=== PATIENT | female | born 2000 | race Caucasian/White ===

== ENCOUNTER 2019-07-18 16:46 | Observation (INO) ==
[2019-07-18 17:50] LABS: Amphetamine Screen,Urine Negative ng/mL (Cutoff=1000); Barbiturate Screen,Urine Negative ng/mL (Cutoff=200); Benzodiazepines Screen,Urine Negative ng/mL (Cutoff=200); Cannabinoid Screen,Urine Negative ng/mL (Cutoff = 50); Cocaine Screen,Urine Negative ng/mL (Cutoff= 300); Opiate Screen,Urine Negative ng/mL (Cutoff=300); Phencyclidine Screen,Urine Negative ng/mL (Cutoff=25)
[2019-07-18] MEDS ORDERED: Epidural Premix (fent/bupiv) 110 ML EP SCH (18:15)
[2019-07-18 20:48] LABS: Bilirubin,Urine Small (Negative); Blood,Urine Small (Negative); Clarity,Urine Cloudy (Clear); Color,Urine Dark Yellow (Yellow); Glucose,Urine (UA) Normal (Normal); Ketones,Urine Negative (Negative); Leukocyte Esterase,Urine Small (Negative); Nitrite,Urine Negative (Negative); Protein,Urine Negative (Neg-Trace); Specific Gravity,Urine 1.021 (1.010-1.025); Urobilinogen,Urine Normal (Normal)
[2019-07-18 20:49] LABS: Bacteria,Urine Moderate per hpf (None-Few); Squamous Epithelial Cell,Urine Many per lpf (None-Few)
[2019-07-18 21:11] LABS: Hyaline Casts,Urine None Seen per lpf (None-Few); Mucus,Urine Few (Few); RBC,Urine 0-3 per hpf (0-3)
[2019-07-18] MEDS ORDERED: hydrOXYzine pamoate 25 MG CAPSULE PO PRN (21:43)
== END 2019-07-18 22:10 | disposition home or self-care (01) ==
LOC: 1NENULAB
PROVIDERS: ADMIT Registered Nurse; ATTEND Registered Nurse

== ENCOUNTER 2019-07-19 03:25 | Inpatient (IN) ==
[~2019-07-19 03:25] MED LIST: *HR* Nalbuphine 10 MG/ML AMPUL IVP PRN; Famotidine 20 MG/2 ML VIAL IVP PRN; Lidocaine 1% 20 ML MDV INFILT PRN; Metoclopramide 10 MG/2 ML VIAL IVP PRN; Naloxone 0.4 MG/ML INJ IVP PRN; Ondansetron 4 MG/2 ML VIAL IVP PRN
[2019-07-19] MEDS ORDERED: Ringers Solution, Lactated 1,000 ML IVC SCH (03:30)
[2019-07-19] MEDS ORDERED: Epidural Premix (fent/bupiv) 110 ML EP ONE (03:33)
[2019-07-19 03:48] LABS: Basophils % 0.2 %; Eosinophils # 0.1 K/mcL (0.0-0.6); Eosinophils % 0.6 %; Hematocrit 33.3 % (35.3-44.9); Hemoglobin 11.5 g/dL (11.5-15.4); Immature Granulocytes % 0.3 % (0-4); Lymphocytes # 1.9 K/mcL (0.6-4.6); Lymphocytes % 16.4 %; Mean Corpuscular HGB Conc 34.5 g/dL (31.6-35.5); Mean Platelet Volume 11.4 fL (9.4-12.4); Monocytes # 0.6 K/mcL (0.0-1.3); Monocytes % 5.2 %; Neutrophils # 8.7 K/mcL (1.6-8.9); Platelet Count 259 K/mcL (140-400); Red Blood Count 4.11 M/mcL (3.82-4.97); Red Cell Distribution Width 12.8 % (11.5-14.5); Segmented Neutrophils % 77.3 %; White Blood Count 11.3 K/mcL (4.3-11.1)
[2019-07-19] MEDS ORDERED: Epidural Premix (fent/bupiv) 110 ML EP SCH (04:00)
[2019-07-19 04:02] LABS: Amphetamine Screen,Urine Negative ng/mL (Cutoff=1000); Barbiturate Screen,Urine Negative ng/mL (Cutoff=200); Benzodiazepines Screen,Urine Negative ng/mL (Cutoff=200); Cannabinoid Screen,Urine Negative ng/mL (Cutoff = 50); Cocaine Screen,Urine Negative ng/mL (Cutoff= 300); Opiate Screen,Urine Negative ng/mL (Cutoff=300); Phencyclidine Screen,Urine Negative ng/mL (Cutoff=25)
[2019-07-19] MEDS ORDERED: Oxytocin 20 units/ LR 1000 mL 20 UNIT/1,000 ML BAG IVC ONE (04:26)
[2019-07-19] MEDS ORDERED: Benzocaine/Menthol 56 GM AEROSOL SPRAY TP PRN (08:47)
[2019-07-19] MEDS ORDERED: Oxytocin 20 units/ LR 1000 mL 20 UNIT/1,000 ML BAG IVC SCH (08:47)
[2019-07-19] MEDS: Acetaminophen 325 MG TABLET PO PRN ×2 (09:23→15:53)
[2019-07-19] MEDS: Ibuprofen 600 MG TABLET PO PRN ×3 (09:24→23:14)
[2019-07-19] MEDS: Prenatal Vit/FA 1 EACH TABLET PO SCH (11:56)
[2019-07-20 07:53] VITALS: BP 122/71
[2019-07-20] MEDS: Prenatal Vit/FA 1 EACH TABLET PO SCH (08:40)
[2019-07-20] MEDS: Acetaminophen 325 MG TABLET PO PRN (11:38)
== END 2019-07-20 14:45 | disposition home or self-care (01) | DRG 560 ==
LOC: 1NENULAB → 1NENUOBS 08:11
PROVIDERS: ADMIT Registered Nurse; ATTEND Registered Nurse

== ENCOUNTER 2020-01-20 11:54 | Observation (INO) ==
[2020-01-20] MEDS ORDERED: Ondansetron 4 MG/2 ML VIAL IVP PRN (15:12)
[2020-01-20] MEDS ORDERED: *HR* HYDROcodone/Acet 5/325 mg TABLET PO PRN (15:12)
[2020-01-20] MEDS: Clindamycin 900 MG/50 ML 900 MG/50 ML IV.SOLN IVPB SCH (19:05)
[2020-01-21] MEDS: Clindamycin 900 MG/50 ML 900 MG/50 ML IV.SOLN IVPB SCH ×2 (00:34→10:26)
[2020-01-21] MEDS ORDERED: Ondansetron 4 MG/2 ML VIAL ONE (07:27)
[2020-01-21] MEDS ORDERED: Lidocaine -MPF 2% 2 ML VIAL ONE (07:27)
[2020-01-21] MEDS ORDERED: *HR* FentaNYL (PF) 100 MCG/2 ML VIAL ONE ×2 (07:27→08:25)
[2020-01-21] MEDS ORDERED: Dexamethasone 4 MG/ML VIAL ONE (07:27)
[2020-01-21] MEDS ORDERED: *HR* Propofol 200 MG/20 ML VIAL IVP ONE (07:28)
[2020-01-21] MEDS ORDERED: *HR* Midazolam HCl 2 MG/2 ML VIAL ONE (07:28)
[2020-01-21] MEDS ORDERED: Ondansetron 4 MG/2 ML VIAL IVP ONE ×2 (07:42→10:12)
[2020-01-21] MEDS ORDERED: *HR* OxyCODONE Immed Rel 5 MG TABLET PO PRN (07:42)
[2020-01-21] MEDS ORDERED: Acetaminophen IV 1,000 MG/100 ML INFUS..BTL ONE (07:47)
[2020-01-21] MEDS: *HR* HYDROmorphone PF 0.5 MG/0.5 ML SYRINGE IVP PRN ×4 (08:32→09:00)
[2020-01-21] MEDS ORDERED: Ondansetron 4 MG/2 ML VIAL IVP PRN (10:12)
[2020-01-21] MEDS ORDERED: *HR* HYDROcodone/Acet 5/325 mg TABLET PO PRN (10:12)
[2020-01-21 12:43] VITALS: BP 130/76
[2020-01-21] MEDS ORDERED: Clindamycin 900 MG/50 ML 900 MG/50 ML IV.SOLN IVPB SCH (16:00)
== END 2020-01-21 14:19 | disposition left against medical advice (07) ==
LOC: CDU → 3ANU 15:12
PROVIDERS: ADMIT Surgery; ATTEND Surgery

== ENCOUNTER → 2021-05-20 01:50 | Observation (INO) ==
[2021-05-20 00:46] LABS: Bilirubin,Urine Negative (Negative); Blood,Urine Negative (Negative); Clarity,Urine Clear (Clear); Color,Urine Light-Yellow (Yellow); Glucose,Urine (UA) Normal (Normal); Ketones,Urine Negative (Negative); Leukocyte Esterase,Urine Negative (Negative); Nitrite,Urine Negative (Negative); PH,Urine 6.5 pH Units (5.0-8.0); Protein,Urine Negative (Neg-Trace); Specific Gravity,Urine 1.024 (1.010-1.025); Urobilinogen,Urine Normal (Normal)
[2021-05-20 00:50] LABS: Basophils % 0.2 %; Eosinophils # 0.4 K/mcL (0.0-0.6); Eosinophils % 3.9 %; Hematocrit 31.2 % (35.3-44.9); Hemoglobin 10.4 g/dL (11.5-15.4); Immature Granulocytes % 0.4 % (0-4); Lymphocytes % 29.5 %; Mean Corpuscular HGB Conc 33.3 g/dL (31.6-35.5); Mean Corpuscular Hemoglobin 28.6 pg (28.0-33.3); Mean Corpuscular Volume 85.7 fL (83.0-100.0); Mean Platelet Volume 10.6 fL (9.4-12.4); Monocytes # 0.5 K/mcL (0.0-1.3); Monocytes % 4.4 %; Neutrophils # 6.3 K/mcL (1.6-8.9); Nucleated Red Blood Cells 0.2 /100 WBC (0); Platelet Count 252 K/mcL (140-400); Red Blood Count 3.64 M/mcL (3.82-4.97); Red Cell Distribution Width 12.9 % (11.5-14.5); Segmented Neutrophils % 61.6 %; White Blood Count 10.2 K/mcL (4.3-11.1)
[2021-05-20 00:57] LABS: Protein/Creatinine Ratio,Urine 0.16 mg/mg (0.00-0.20)
[2021-05-20 01:08] LABS: Alanine Aminotransferase 13 Units/L (7-52); Aspartate Amino Transferase 16 Units/L (13-39); BUN/Creatinine Ratio 29 (6-26); Blood Urea Nitrogen 12 mg/dL (6-20); Lactate Dehydrogenase 92 Units/L (140-271); eGFR For African Americans > 60 (> 60); eGFR For Non-African Americans > 60 (> 60)
[~2021-05-20 01:50] MED LIST changes: -*HR* Nalbuphine 10 MG/ML AMPUL IVP PRN; +FLU Vac QV 21-22 (6Month+)/PF 0.5 ML SYRINGE IM ONE; -Famotidine 20 MG/2 ML VIAL IVP PRN; -Lidocaine 1% 20 ML MDV INFILT PRN; -Metoclopramide 10 MG/2 ML VIAL IVP PRN; -Naloxone 0.4 MG/ML INJ IVP PRN; -Ondansetron 4 MG/2 ML VIAL IVP PRN; +Prochlorperazine 10 MG/2 ML VIAL IM ONE
== END | disposition home or self-care (01) ==
LOC: 1NENULAB
PROVIDERS: ADMIT Registered Nurse; ATTEND Registered Nurse

== ENCOUNTER → 2021-08-13 20:20 | Observation (INO) ==
[2021-08-13 16:53] LABS: Basophils % 0.3 %; Eosinophils # 0.1 K/mcL (0.0-0.6); Eosinophils % 1.4 %; Hemoglobin 10.5 g/dL (11.5-15.4); Immature Granulocytes % 0.5 % (0-4); Lymphocytes # 2.3 K/mcL (0.6-4.6); Lymphocytes % 23.7 %; Mean Corpuscular HGB Conc 32.8 g/dL (31.6-35.5); Mean Corpuscular Hemoglobin 27.3 pg (28.0-33.3); Mean Corpuscular Volume 83.1 fL (83.0-100.0); Mean Platelet Volume 11.2 fL (9.4-12.4); Monocytes # 0.4 K/mcL (0.0-1.3); Monocytes % 4.5 %; Neutrophils # 6.8 K/mcL (1.6-8.9); Platelet Count 283 K/mcL (140-400); Red Blood Count 3.85 M/mcL (3.82-4.97); Red Cell Distribution Width 12.3 % (11.5-14.5); Segmented Neutrophils % 69.6 %; White Blood Count 9.8 K/mcL (4.3-11.1)
[2021-08-13 17:02] LABS: Protein/Creatinine Ratio,Urine 0.27 mg/mg (0.00-0.20)
[2021-08-13 17:12] LABS: Alanine Aminotransferase 41 Units/L (7-52); Aspartate Amino Transferase 35 Units/L (13-39); BUN/Creatinine Ratio 23 (6-26); Blood Urea Nitrogen 10 mg/dL (6-20); Lactate Dehydrogenase 132 Units/L (140-271); Uric Acid 3.4 mg/dL (2.3-7.6); eGFR For African Americans > 60 (> 60); eGFR For Non-African Americans > 60 (> 60)
[2021-08-13 19:40] LABS: Influenza A PCR Negative (Negative); Influenza B PCR Negative (Negative); Resp. Syncytial Virus PCR Negative (Negative)
[2021-08-13 19:41] LABS: SARS-CoV-2 by PCR (In House) Negative (Negative)
[~2021-08-13 20:20] MED LIST changes: +Acetaminophen/Butalbital/CaffeineTABLET PO PRN; -FLU Vac QV 21-22 (6Month+)/PF 0.5 ML SYRINGE IM ONE; -Prochlorperazine 10 MG/2 ML VIAL IM ONE; +Ringers Solution, Lactated 1,000 ML IVC ONE; +Ringers Solution, Lactated 1,000 ML ONE; +hydrOXYzine pamoate 25 MG CAPSULE PO ONE
== END | disposition home or self-care (01) ==
LOC: 1NENULAB
PROVIDERS: ADMIT Registered Nurse; ATTEND Registered Nurse

== ENCOUNTER 2021-08-16 01:36 | Observation (INO) ==
[2021-08-16 02:51] LABS: Influenza A PCR Negative (Negative); Influenza B PCR Negative (Negative); Resp. Syncytial Virus PCR Negative (Negative)
[2021-08-16 03:06] LABS: SARS-CoV-2 by PCR (In House) Negative (Negative)
[2021-08-16 03:09] LABS: Bacteria,Urine Few per hpf (None-Few); Bilirubin,Urine Negative (Negative); Blood,Urine Negative (Negative); Clarity,Urine Clear (Clear); Color,Urine Yellow (Yellow); Glucose,Urine (UA) Normal (Normal); Ketones,Urine Negative (Negative); Leukocyte Esterase,Urine Negative (Negative); Mucus,Urine Few per lpf (None-Few); Nitrite,Urine Negative (Negative); Protein,Urine 50 mg/dL (Neg-Trace); Specific Gravity,Urine > 1.030 (1.010-1.025); Squamous Epithelial Cell,Urine Moderate per hpf (None-Few); WBC,Urine 0-3 per hpf (0-3)
== END 2021-08-16 03:25 | disposition home or self-care (01) ==
LOC: 1NENULAB
PROVIDERS: ADMIT Advanced Practice Midwife; ATTEND Advanced Practice Midwife

== ENCOUNTER 2021-08-24 18:11 | Observation (INO) ==
[2021-08-24 20:18] LABS: Bilirubin,Urine Negative (Negative); Blood,Urine Negative (Negative); Clarity,Urine Turbid (Clear); Color,Urine Yellow (Yellow); Glucose,Urine (UA) Normal (Normal); Ketones,Urine Negative (Negative); Leukocyte Esterase,Urine Negative (Negative); Mucus,Urine Few per lpf (None-Few); Nitrite,Urine Negative (Negative); Protein,Urine Trace mg/dL (Neg-Trace); RBC,Urine 0-3 per hpf (0-3); Specific Gravity,Urine 1.024 (1.010-1.025); Squamous Epithelial Cell,Urine Moderate per hpf (None-Few); Urobilinogen,Urine Normal (Normal); WBC,Urine 0-3 per hpf (0-3)
[2021-08-24 20:20] LABS: Basophils % 0.3 %; Eosinophils # 0.2 K/mcL (0.0-0.6); Eosinophils % 1.3 %; Hematocrit 31.7 % (35.3-44.9); Hemoglobin 10.3 g/dL (11.5-15.4); Immature Granulocytes % 0.4 % (0-4); Lymphocytes # 2.6 K/mcL (0.6-4.6); Lymphocytes % 22.5 %; Mean Corpuscular HGB Conc 32.5 g/dL (31.6-35.5); Mean Corpuscular Hemoglobin 27.2 pg (28.0-33.3); Mean Corpuscular Volume 83.6 fL (83.0-100.0); Mean Platelet Volume 11.6 fL (9.4-12.4); Monocytes # 0.5 K/mcL (0.0-1.3); Monocytes % 4.4 %; Neutrophils # 8.1 K/mcL (1.6-8.9); Platelet Count 256 K/mcL (140-400); Red Blood Count 3.79 M/mcL (3.82-4.97); Red Cell Distribution Width 12.4 % (11.5-14.5); Segmented Neutrophils % 71.1 %; White Blood Count 11.4 K/mcL (4.3-11.1)
[2021-08-24 20:35] LABS: Alanine Aminotransferase 34 Units/L (7-52); Aspartate Amino Transferase 28 Units/L (13-39); BUN/Creatinine Ratio 21 (6-26); Blood Urea Nitrogen 9 mg/dL (6-20); Lactate Dehydrogenase 119 Units/L (140-271); Uric Acid 4.7 mg/dL (2.3-7.6); eGFR For African Americans > 60 (> 60); eGFR For Non-African Americans > 60 (> 60)
[2021-08-24 20:39] LABS: Protein/Creatinine Ratio,Urine 0.2 mg/mg (0.00-0.20)
== END 2021-08-24 21:20 | disposition home or self-care (01) ==
LOC: 1NENULAB
PROVIDERS: ADMIT Registered Nurse; ATTEND Registered Nurse

== ENCOUNTER 2021-09-07 08:00 | Inpatient (IN) ==
[2021-09-07] MEDS ORDERED: EPHEDrine 50 MG/ML VIAL IVP PRN (08:12)
[2021-09-07] MEDS ORDERED: Ringers Solution, Lactated 1,000 ML IVC SCH (08:15)
[2021-09-07] MEDS ORDERED: Ondansetron 4 MG/2 ML VIAL IVP PRN (08:15)
[2021-09-07] MEDS ORDERED: Famotidine 20 MG/2 ML VIAL IVP PRN (08:15)
[2021-09-07] MEDS ORDERED: Epidural Premix (fent/bupiv) 110 ML EP SCH (08:15)
[2021-09-07] MEDS ORDERED: Azithromycin 500 MG in 0.9 % Sodium Chloride 250 ML IVPB PRN (08:15)
[2021-09-07] MEDS ORDERED: Lidocaine 1% 20 ML MDV INFILT PRN (08:15)
[2021-09-07] MEDS ORDERED: Metoclopramide 10 MG/2 ML VIAL IVP PRN (08:15)
[2021-09-07 09:07] LABS: Basophils % 0.2 %; Eosinophils # 0.1 K/mcL (0.0-0.6); Eosinophils % 1.2 %; Hematocrit 29.9 % (35.3-44.9); Immature Granulocytes % 0.6 % (0-4); Lymphocytes # 2.6 K/mcL (0.6-4.6); Lymphocytes % 25.8 %; Mean Corpuscular HGB Conc 33.4 g/dL (31.6-35.5); Mean Corpuscular Hemoglobin 27.7 pg (28.0-33.3); Mean Corpuscular Volume 82.8 fL (83.0-100.0); Mean Platelet Volume 11.9 fL (9.4-12.4); Monocytes # 0.5 K/mcL (0.0-1.3); Monocytes % 4.8 %; Neutrophils # 6.7 K/mcL (1.6-8.9); Nucleated Red Blood Cells 0.2 /100 WBC (0); Platelet Count 282 K/mcL (140-400); Red Blood Count 3.61 M/mcL (3.82-4.97); Red Cell Distribution Width 12.8 % (11.5-14.5); Segmented Neutrophils % 67.4 %; White Blood Count 9.9 K/mcL (4.3-11.1)
[2021-09-07 09:37] LABS: Influenza A PCR Negative (Negative); Influenza B PCR Negative (Negative); Resp. Syncytial Virus PCR Negative (Negative)
[2021-09-07] MEDS ORDERED: miSOPROStoL 25 MCG TABLET PO PRN (09:37)
[2021-09-07 09:50] LABS: SARS-CoV-2 by PCR (In House) Negative (Negative)
[2021-09-07 10:50] LABS: Amphetamine Screen,Urine Negative ng/mL (Cutoff=1000); Barbiturate Screen,Urine Negative ng/mL (Cutoff=200); Benzodiazepines Screen,Urine Negative ng/mL (Cutoff=200); Cannabinoid Screen,Urine Negative ng/mL (Cutoff = 50); Cocaine Screen,Urine Negative ng/mL (Cutoff= 300); Opiate Screen,Urine Negative ng/mL (Cutoff=300); Phencyclidine Screen,Urine Negative ng/mL (Cutoff=25)
[2021-09-07] MEDS ORDERED: Ondansetron 4 MG/2 ML VIAL ONE (12:12)
[2021-09-07] MEDS ORDERED: Oxytocin 20 units/ LR 1000 mL 20 UNIT/1,000 ML BAG IVC SCH (14:15)
[2021-09-07] MEDS: *HR* Nalbuphine 10 MG/ML AMPUL IV PRN ×2 (16:10→20:10)
[2021-09-08] MEDS ORDERED: Benzocaine/Menthol 56 GM AEROSOL SPRAY TP PRN (00:37)
[2021-09-08] MEDS ORDERED: Oxytocin 20 units/ LR 1000 mL 20 UNIT/1,000 ML BAG IVC SCH (00:37)
[2021-09-08] MEDS ORDERED: Lanolin 7 G OINT...G. TP PRN (00:37)
[2021-09-08] MEDS ORDERED: Ondansetron ODT 4 MG TAB.RAPDIS SL PRN (00:37)
[2021-09-08] MEDS: Ibuprofen 600 MG TABLET PO SCH ×4 (01:14→22:40)
[2021-09-08] MEDS: Acetaminophen 325 MG TABLET PO SCH ×2 (03:03→18:55)
[2021-09-08] MEDS: Prenatal Vit/FA 1 EACH TABLET PO SCH (11:06)
[2021-09-09] MEDS ORDERED: hydrOXYzine pamoate 25 MG CAPSULE PO PRN (03:08)
[2021-09-09 07:29] VITALS: BP 127/85; PULSE 84; TEMP 98.2; O2SAT 95
[2021-09-09] MEDS: Prenatal Vit/FA 1 EACH TABLET PO SCH (09:21)
[2021-09-09] MEDS: Acetaminophen 325 MG TABLET PO SCH (09:21)
[2021-09-09] MEDS: Ibuprofen 600 MG TABLET PO SCH (09:21)
== END 2021-09-09 12:29 | disposition home or self-care (01) | DRG 560 ==
LOC: 1NENULAB 08:03 → 1NENUOBS 09-08 01:09
PROVIDERS: ADMIT Advanced Practice Midwife; ATTEND Advanced Practice Midwife